=== PATIENT | male | born 1995 | race Caucasian/White ===

== ENCOUNTER 2019-05-18 19:53 | Emergency (ER) | payer SELFPAY ==
[~2019-05-18] VITALS: Ht 177.8 cm; Wt 113.4 kg
--- NOTE | 2019-05-18 20:39 | Diagnostic Imaging Report ---
INDICATION: Pain status post injury. COMPARISON: None FINDINGS: Three radiographic views of the right hand were obtained and demonstrate acute transversely oriented fracture through the midshaft of the fourth metacarpal. There is mild posterior subluxation of the distal fracture fragment by approximately one shaft width. There is also mild angulation with apex projecting posteriorly. There is overlying soft tissue swelling. No other acute osseous abnormalities are seen. Joint spaces are maintained. IMPRESSION: 1. Acute fracture of the fourth metacarpal, as described above. Dictated by: Dictated on workstation # [id number]
--- NOTE | 2019-05-18 20:55 | ED Upper Extremity ---
General Chief Complaint: Upper Extremity Stated Complaint: RT HAND INJ Nursing Triage Note: PT. REPORTED HE HIT A POST WITH HIS RIGHT HAND ON SATURDAY. THE RIGHT HAND IS SWOLLEN AND HE IS LOOSING FEELING IN THE RIGHT RING FINGER. Nursing Sepsis Screen: No Definite Risk Source: patient Exam Limitations: no limitations History of Present Illness Date Seen by Provider: May 18, 2019 Time Seen by Provider: 08:15 Initial Comments Patient is a 23-year-old right-handed male presents with persistent right hand, pain, tenderness swelling and tingling in fingertips after striking a post 3 days ago. Patient denies motor weakness. Denies wrist pain. No medications or therapies taken prior to ED arrival. No other injuries or complaints Onset: other Pain/Injury Location: right hand Method of Injury: direct blow Modifying Factors: Improves With Movement Allergies and Home Medications Patient Home Medication List Home Medication List Reviewed: Yes Review of Systems Constitutional: no symptoms reported EENTM: no symptoms reported Respiratory: no symptoms reported Cardiovascular: no symptoms reported Gastrointestinal: no symptoms reported Genitourinary: no symptoms reported Musculoskeletal: see HPI Skin: no symptoms reported Psychiatric/Neurological: See HPI Past Kuojfzy-Azmqjh-Psgfnr Hx Past Med/Social Hx: Reviewed Nursing Past Med/Soc Hx Patient Social History Recent Foreign Travel: No Contact w/Someone Who Travel: No Recent Infectious Disease Expo: No Physical Abuse: No Sexual Abuse: No Mistreated: No Fear: No Physical Exam Vital Signs Vital Signs - First Documented 05/18/19 20:07 Temp 97.9 Pulse 82 Resp 16 B/P (MAP) 137/70 (92) O2 Delivery Room Air Capillary Refill : Less Than 3 Seconds Height, Weight, BMI Height: 5'10.00" Weight: 250lbs. oz. 113.955919ke; BMI Method:Stated General Appearance: WD/WN, no apparent distress HEENT: PERRL/EOMI Respiratory: lungs clear Wrist: Yes normal inspection, Yes non-tender, Yes no evidence of injury Hand: Right, bone tenderness, limited ROM, soft tissue tenderness, swelling Neurologic/Tendon: normal sensation, normal motor functions, normal tendon functions, responds to pain Neurologic/Psychiatric: no motor/sensory deficits, alert Progress/Results/Core Measures Results/Orders My Orders Orders - BRITTNY VELAZQUEZ DO Hand 3 View Right (05/18/19 20:08) Nursing Communication (Order) (05/18/19 20:42) Vital Signs/I&O 05/18/19 20:07 Temp 97.9 Pulse 82 Resp 16 B/P (MAP) 137/70 (92) O2 Delivery Room Air Blood Pressure Mean: 92 Departure Communication (Admissions) Minimally displaced right fourth midshaft metacarpal fracture. Patient placed in a splint for comfort and instructed to follow-up with orthopedics/hand surgery. Impression Primary Impression: Metacarpal bone fracture Disposition: HOME, SELF-CARE Condition: Improved Departure-Patient Inst. Referrals: NO,LOCAL PHYSICIAN (PCP) Primary Care Physician CONSUELO CASILLAS DO Patient Instructions: Hand Fracture (DC) Add. Discharge Instructions: You have an isolated closed right fourth mid shaft, minimally displaced ,metacarpal fracture. Please wear splint for comfort and take Tylenol or ibuprofen for pain. Follow-up with orthopedic/hand surgeon. All discharge instructions reviewed with patient and/or family. Voiced understmiguelnagel brantley. BRITTNY VELAZQUEZ DO May 18, 2019 20:55
[2019-05-18 21:02] VITALS: BP 137/70
== END 2019-05-18 21:05 | disposition home or self-care (01) ==
LOC: EDUNIT# 19:53 → ER FS 19:55
DX: S62.324A Displaced fracture of shaft of fourth metacarpal bone, right hand, initial encounter for closed fracture (principal); W22.8XXA Striking against or struck by other objects, initial encounter
CPT/HCPCS: 73130